=== PATIENT | male | born 1980 | race Caucasian/White ===

== ENCOUNTER 2018-12-14 05:51 | Emergency (ER) | payer OTHER ==
--- NOTE | 2018-12-14 06:22 | RAD ---
EXAM: PA and Lateral Views of the Chest DATE: 12/14/2018 6:11 AM INDICATION: Chest pain COMPARISON: No Prior FINDINGS: The heart is not enlarged. Mediastinal and hilar contours are normal. No focal parenchymal airspace opacity. No pleural effusion or pneumothorax. IMPRESSION: 1. No radiographic evidence for acute cardiopulmonary process. Electronically signed by: Jose Finnegan MD (12/14/2018 6:20 AM) [facility]
[2018-12-14] MEDS ORDERED: NITROGLYCERIN SUBLINGUAL 0.4 MG BOTTLE OF 25. SL ONE (06:30)
[2018-12-14] MEDS: ASPIRIN 81 MG TAB.CHEW PO ONE (06:30)
--- NOTE | 2018-12-14 06:32 | EKG ---
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
--- NOTE | 2018-12-14 06:38 | PHYS DOC ---
Past History Past Medical History: No Pertinent History Past Surgical History: Cholecystectomy, Other Smoking: Cigar (occationally) Additional Smoking Information: OCCASIONAL CIGAR Alcohol Use: Occasionally Drug Use: None Adult General Chief Complaint Chief Complaint: CHEST PAIN HPI HPI Patient is a 38 year old male who presents with complaining of chest pain. Patient states he woke up at 0430 because of bilateral chest tightness with radiation to bilateral jaw as a constant pain and rated his pain 7/10 that improved with 325 mg of aspirin and ibuprofen to 5/10 at arrival to ER. Patient states the pain is associated with shortness of breath and nausea without vomiting, palpitation, dizziness, paresthesia. Patient denies change of pain with activity. Patient states he woke up the night before last night with the same pain that last for several hours. Patient denies physical activity more than his usual, cough and congestion, URI symptoms, history of chest pain, recent immobilization or lower extremity pain or edema. Patient does not have any cardiac risk factor except for smoking cigar occasionally. Patient has history of right below-knee amputation because of injury in [place]. Review of Systems Review of Systems Constitutional: Denies fever or chills [] Eyes: Denies change in visual acuity, redness, or eye pain [] HENT: Denies nasal congestion or sore throat [] Respiratory: Denies cough reports shortness of breath [] Cardiovascular: No additional information not addressed in HPI [] GI: Denies abdominal pain, vomiting, bloody stools or diarrhea , reports nausea[ ] : Denies dysuria or hematuria [] Musculoskeletal: Denies back pain or joint pain [] Integument: Denies rash or skin lesions [] Neurologic: Denies headache, focal weakness or sensory changes [] Endocrine: Denies polyuria or polydipsia [] All other systems were reviewed and found to be within normal limits, except as documented in this note. Current Medications Current Medications Current Medications Medications (Trade) Dose Ordered Sig/Cecilia Start Time Stop Time Status Last Admin Dose Admin Aspirin (Children'S Aspirin) 324 mg 1X ONCE 12/14/18 06:30 12/14/18 06:32 DC Nitroglycerin (Nitrostat) 0.4 mg STK-MED ONCE 12/14/18 06:30 12/14/18 06:31 DC Allergies Allergies Allergies Coded Allergies Type Severity Reaction Last Updated Verified No Known Drug Allergies 12/14/18 No Physical Exam Physical Exam Constitutional: Well developed, well nourished, mild acute distress, non-toxic appearance. [] HENT: Normocephalic, atraumatic. Eyes: PERRLA, EOMI, conjunctiva normal, no discharge. [] Neck: Normal range of motion, no tenderness, supple, no stridor. [] Cardiovascular:Heart rate regular rhythm, no murmur [] Lungs & Thorax: Bilateral breath sounds clear to auscultation , no chest wall tenderness[] Abdomen: Bowel sounds normal, soft, no tenderness, no masses, no pulsatile masses. [] Skin: Warm, dry, no erythema, no rash. [] Back: No tenderness, no CVA tenderness. [] Extremities: Right below knee amputation,no tenderness, no cyanosis, no clubbing , ROM intact, no edema. [] Neurologic: Alert and oriented X 3, normal motor function, normal sensory function, no focal deficits noted. [] Psychologic: Affect normal, judgement normal, mood normal. [] Current Patient Data Vital Signs Vital Signs Date Time Temp Pulse Resp B/P (MAP) Pulse Ox O2 Delivery O2 Flow Rate FiO2 12/14/18 05:52 79 18 95 Room Air EKG EKG Interpreted by me. EKG at 0602 showed normal sinus rhythm at rate of 76, left garcia axis, mild elevation in D1 and AVL with possible STEMI Radiology/Procedures Radiology/[place] [address] IMAGING REPORT Signed PATIENT: MERRY SOSA ACCOUNT: [id number] : 1980 LOCATION: ER AGE: 38 SEX: M EXAM STATUS: REG ER ORD. PHYSICIAN: BAN GARCIA MD REASON: Chest pain PROCEDURE: CHEST PA & LATERAL EXAM: PA and Lateral Views of the Chest DATE: 12/14/2018 6:11 AM INDICATION: Chest pain COMPARISON: No Prior FINDINGS: The heart is not enlarged. Mediastinal and hilar contours are normal. No focal parenchymal airspace opacity. No pleural effusion or pneumothorax. IMPRESSION: 1. No radiographic evidence for acute cardiopulmonary process. Electronically signed by: Jose Tatum MD (12/14/2018 6:20 AM) [facility] DICTATED AND SIGNED BY: JOSE TATUM MD DATE: 12/14/18618 CC: BAN GARCIA MD; PCP,CHUCKY ~ Course & Med Decision Making Course & Med Decision Making Pertinent Labs and Imaging studies reviewed. (See chart for details) Evaluation of patient in ER showed 38-year-old male patient with complaining of episodes of chest pain since yesterday. EKG showed less than [address] elevation in D1 and AVL. Patient treated with nitroglycerin 1 and his chest pain dropped from 5 to 2. Patient had drop of blood pressure to 88 and treated with IV fluids with improvement of blood pressure. Patient had troponin of 14 and on- call stable helper Dr. Son was consulted at 0730 for STEMI activation. He recommended to start heparin bolus and drip and send patient for cardiac catheterization to [facility]. Dr. Guadarrama accepted transfer to [facility] at 0735. Dragon Disclaimer Dragon Disclaimer This electronic medical record was generated, in whole or in part, using a voice recognition dictation system. Departure Departure: Impression: Primary Impression: STEMI (ST elevation myocardial infarction) Disposition: 02 XFER SHT-TRM HOSP ([facility] at 0736) Admitting Physician: Zainab Guadarrama (accepted transfer to [facility] at 0735) Condition: GUARDED Referrals: PCPCHUCKY (PCP) Critical Care Time Critical care time was 60 minutes exclusive of procedures. BAN GARCIA MD Dec 14, 2018 06:38
[2018-12-14 06:51] LABS: BASO % 1 % (0-3); EOS # 0.4 x10^3/uL (0.0-0.7); EOS % 5 % (0-3); HEMATOCRIT 41.5 % (39.0-53.0); HEMOGLOBIN 14.3 g/dL (13.0-17.5); LYMPH # 1.4 x10^3/uL (1.0-4.8); LYMPH % 20 % (24-48); MEAN CORPUSCULAR HEMOGLOBIN 32 pg (25-35); MEAN CORPUSCULAR HGB CONC 35 g/dL (31-37); MEAN CORPUSCULAR VOLUME 93 fL (79-100); MONO # 0.7 x10^3/uL (0.0-1.1); MONO % 9 % (0-9); NEUT # 4.9 x10^3uL (1.8-7.7); NEUT % 66 % (31-73); PLATELET COUNT 135 x10^3/uL (140-400); RED BLOOD COUNT 4.45 x10^6/uL (4.30-5.70); RED CELL DISTRIBUTION WIDTH 12.8 % (11.5-14.5); WHITE BLOOD COUNT 7.4 x10^3/uL (4.0-11.0)
[2018-12-14 07:09] LABS: ALBUMIN 3.5 g/dL (3.4-5.0); ALBUMIN/GLOBULIN RATIO 1.3 (1.0-1.7); CALCIUM 8.7 mg/dL (8.5-10.1); CREATININE 0.9 mg/dL (0.7-1.3); GFR 93.5; POTASSIUM 3.8 mmol/L (3.5-5.1); TOTAL BILIRUBIN 0.6 mg/dL (0.2-1.0); TOTAL PROTEIN 6.2 g/dL (6.4-8.2)
[2018-12-14] MEDS: HEPARIN for IV BOLUS 10,000 UNIT/10 ML VIAL. IV ONE (07:42)
[2018-12-14] MEDS: MORPHINE SULFATE 4 MG/ML DISP.SYRIN. IV ONE (07:45)
[2018-12-14] MEDS ORDERED: HEPARIN 25,000UTS/500ML PREMIX 500 ML IV ONE (07:45)
[2018-12-14] MEDS: IV NORMAL SALINE 1,000ML 1,000 ML IV ONE (07:46)
[2018-12-14] MEDS: ONDANSETRON PF 4 MG/2 ML VIAL. IV ONE (07:47)
[2018-12-14 07:50] VITALS: BP 99/75
== END 2018-12-14 08:00 | disposition short-term general hospital (02) ==
LOC: ER 05:51
DX: I21.3 ST elevation (STEMI) myocardial infarction of unspecified site (principal); F17.210 Nicotine dependence, cigarettes, uncomplicated
CPT/HCPCS: 36415; 71046; 80053; 82550; 83690; 83735; 84484; 85025; 85379; 85610; 93005; 96374; 96375; 99291; J1644; J2270; J2405; 99285; 99284-25; J7030